=== PATIENT | female | born 1960 | race Caucasian/White ===

== ENCOUNTER 2018-04-18 11:59 | Observation (INO) | payer MEDICARE, MEDICAID ==
[2018-04-18 12:52] LABS: #Eosinphils 0.1 thou/uL (0.0-0.7); #Lymphocytes 1.7 thou/uL (1.20-3.40); #Monocytes 0.5 thou/uL (0.11-0.59); %Basophils 0.4 % (0.0-1.0); %Eosinophils 1.8 % (0.0-10.0); %Lymphocytes 20.3 % (21.0-51.0); %Neutrophils 71.5 % (42.0-75.0); Hemoglobin 14.6 g/dL (12.0-16.0); Mean Corpuscular HGB CONC 32.2 g/dL (32.0-36.0); Mean Corpuscular Hemoglobin 31.6 pg (27.0-31.0); Mean Corpuscular Volume 98.1 fL (78.0-98.0); Mean Platelet Volume 7.1 fL (7.4-10.4); Platelet Count 235 thou/uL (130-400); RBC Distribution Width 11.8 % (11.5-14.5); Red Blood Cell (RBC) Count 4.62 mill/uL (4.20-5.40); White Blood Cell (WBC) Count 8.4 thou/uL (4.8-10.8)
[2018-04-18 13:01] LABS: ALT (SGPT) 20 U/L (8-55); AST (SGOT) 28 U/L (5-34); Alkaline Phosphatase 76 U/L (40-150); Anion Gap 13 mmol/L (10-20); BUN (Urea Nitrogen) 13 mg/dL (9.8-20.1); Bilirubin, Total 0.3 mg/dL (0.2-1.2); Calc. Creatinine Clearance 0 mL/min (70-130); Calcium 9.4 mg/dL (7.8-10.44); Carbon Dioxide 26 mmol/L (22-29); Chloride 104 mmol/L (98-107); Estimated GFR-MDRD 82; Globulin 3.4 g/dL (2.4-3.5); Glucose 97 mg/dL (70-105); Potassium 3.9 mmol/L (3.5-5.1); Protein, Total 7.4 g/dL (6.0-8.3); Sodium 139 mmol/L (136-145)
[2018-04-18 13:03] LABS: CKMB 0.8 ng/mL (0-6.6); Troponin I Less than 0.010 ng/mL (< 0.028)
--- NOTE | 2018-04-18 13:33 | RAD ---
PORTABLE CHEST 1 VIEW: Date: 04/18/18 Time: 1236 hours HISTORY: Dyspnea. Chest pain. FINDINGS: Comparison made with exam of 03/26/18. The heart size is normal. The lungs are hyperinflated without focal areas of consolidation, pneumotho races, or pleural effusions. IMPRESSION: No acute process. POS: [facility]
[2018-04-18] MEDS ORDERED: Acetaminophen 650 MG Suppository PR PRN (15:07)
[2018-04-18] MEDS ORDERED: Enoxaparin Sodium 40 MG/0.4 ML SYRINGE SC SCH (15:07)
[2018-04-18] MEDS ORDERED: Ondansetron ODT 4 MG TAB PO PRN (15:07)
[2018-04-18] MEDS ORDERED: Acetaminophen 325 MG TAB PO PRN (15:07)
[2018-04-18] MEDS ORDERED: Ondansetron PF 4 MG/2 ML Vial IVP PRN (15:07)
[2018-04-18] MEDS ORDERED: Cyclobenzaprine 10 MG TAB PO PRN (15:35)
--- NOTE | 2018-04-18 16:00 | HP ---
DATE OF ADMISSION: 04/18/2018 TIME OF SERVICE: 1400. PRIMARY CARE PHYSICIAN: Jah Fang MD CHIEF COMPLAINT: Chest tightness. HISTORY OF PRESENT ILLNESS: Ms. Ellison is a 57-year-old female with history of COPD, ongoing tobacco abuse, anxiety and depression who presented to the emergency department for episode of chest pain th is morning. The patient took Ritalin that belonged to her friend, so she gets some housework done and after takin g the medicine and sitting down and watching TV for a little bit, she developed acute onset of chest tightness in the center of her chest. She had some diaphoresis, nausea without vomiting, cold sweats associated with it. After about 5 minutes, it went away on its own. She did take a breathing treat ment to try to get it to ease up, which did not seem to help. No fevers or chills. No cough or sput um production. No diarrhea, constipation. She did not have anything like this before. She is taking Ritalin on one occasion prior to this and had no side effects with it at all. PAST MEDICAL HISTORY: 1. COPD. 2. Ongoing tobacco abuse. 3. Anxiety. 4. Depression. PAST SURGICAL HISTORY: 1. Cholecystectomy, remotely. 2. , remotely. 3. Bilateral tubal ligation, remotely. HOME MEDICATIONS: The patient does not know doses, but does get her medicines from [facility] we will get a query. 1. Valium. 2. Meloxicam. 3. Sertraline. 4. Albuterol MDI. 5. DuoNeb treatments. 6. Another long-acting inhaler. She just got recently, does not recall the name. ALLERGIES: 1. PENICILLAMINE. 2. LYRICA. 3. STRAWBERRIES. SOCIAL HISTORY: Significant for about one half to one pack a day of cigarettes for the last 30 years . Denies any IV drug use. She lives alone near family. FAMILY HISTORY: Significant for premature coronary disease in her dad and cerebrovascular disease in her brother. He is 58. He has had 3 strokes, so far. No history of clotting or bleeding disorders , otherwise. REVIEW OF SYSTEMS: All systems reviewed and negative except as per HPI. PHYSICAL EXAMINATION: VITAL SIGNS: Temperature 97.9, pulse 92, blood pressure 114/73, respiratory rate 20, satting 98% on room air. GENERAL: She is awake, she is alert, she is oriented x3. She is a very thin, frail looking white fe male who is in no acute distress. She looks older than her stated age. HEENT: Normocephalic, atraumatic. Pupils equal, round, and reactive to light bilaterally. Mucous m embranes are moist. She has no visible lesions. No thrush. NECK: Supple. She has no lymphadenopathy, no JVD, no thyromegaly. She has good range of motion. N ormal carotid upstrokes without bruits. LUNGS: Clear. She has some faint end-expiratory high pitched squeaks but no prolonged expiratory ph ase. She has no crackles. CARDIOVASCULAR: Normal S1, S2. No S3 or S4. No audible murmur. ABDOMEN: Soft, scaphoid, nontender, nondistended, no masses or organomegaly. EXTREMITIES: Show no signs of clubbing. She has got no edema. SKIN: Warm, moist, and well perfused. There is no rash or lesions. MUSCULOSKELETAL: Normal to inspection. Large joints appear normal. There is no evidence of inflamm ation. No palpable effusion. Good range of motion. NEUROLOGIC: Cranial nerves II-XII are grossly intact. She has no focal neurologic deficits. Normal speech and 5/5 strength in all 4 extremities. LABORATORY DATA: Sodium 139, potassium 3.9, chloride 104, bicarbonate 26, BUN 13, creatinine 0.73, g lucose of 97, calcium 9.4. Liver function within normal limits. CBC showed a white count of 8.4, he moglobin 14.6 hematocrit of 45.3, platelet count is 235,000. CK-MB is normal at 0.8. Troponin I is undetectable less than 0.010. EKG shows normal sinus rhythm with normal axis. There are no abnormal ST-T changes. Her chest x-ray showed no acute cardiopulmonary disease. ASSESSMENT AND PLAN: 1. Acute coronary syndrome . This certainly could be indicative of a coronary spasm, but she h as not had a problem prior. We will place her in observation, with serial cardiac biomarkers, place her on cardioprotective medications and we will obtain a nuclear stress test in the morning if negati ve. 2. Chronic obstructive pulmonary disease without acute exacerbation. We will continue her t.i.d. Du oNeb treatments, q.2 hour p.r.n. albuterol. We will query her home medications. 3. Anxiety. 4. Depression. We will continue home medications. 5. Ongoing tobacco abuse. The patient did refuse nicotine patch. I anticipate discharge in the morning.
[2018-04-18 17:25] LABS: CKMB 0.6 ng/mL (0-6.6); Troponin I Less than 0.010 ng/mL (< 0.028)
[2018-04-18] MEDS: traMADol HCl 50 MG TAB PO PRN (19:13)
[2018-04-18] MEDS: Mometasone/Formoterol 120 PUFF INHALER INH SCH (20:06)
[2018-04-18] MEDS: Ipratropium Bromide 2.5 ml Neb NEB SCH ×2 (20:11→23:20)
[2018-04-18] MEDS ORDERED: Amitriptyline HCl 10 MG TAB PO SCH (21:00)
[2018-04-18] MEDS ORDERED: Diazepam 5 MG TAB PO SCH (21:00)
[2018-04-18] MEDS: Famotidine 20 MG TAB PO SCH (21:01)
[2018-04-18] MEDS: Nitroglycerin 2% Ointment 1 INCH/1 GM Packet TOP SCH (21:05)
[2018-04-19] MEDS: Nitroglycerin 2% Ointment 1 INCH/1 GM Packet TOP SCH ×2 (03:12→13:46)
[2018-04-19] MEDS: traMADol HCl 50 MG TAB PO PRN ×2 (03:57→10:26)
[2018-04-19 05:26] LABS: Band 4 % (5-11); Eosinophils 1 % (0-10); Hemoglobin 12.2 g/dL (12.0-16.0); Lymphocytes 51 % (21-51); MDiff Complete? YES; Mean Corpuscular HGB CONC 32.8 g/dL (32.0-36.0); Mean Corpuscular Hemoglobin 31.3 pg (27.0-31.0); Mean Corpuscular Volume 95.5 fL (78.0-98.0); Mean Platelet Volume 7.3 fL (7.4-10.4); Monocytes 3 % (0-10); Neutrophil 38 % (42-75); PLT Morphology Comment Appears Adequate; Platelet Count 225 thou/uL (130-400); RBC Distribution Width 11.7 % (11.5-14.5); RBC Morphology Normal; Reactive Lymphocytes 3 % (0-10); White Blood Cell (WBC) Count 5.3 thou/uL (4.8-10.8)
[2018-04-19 06:28] LABS: Anion Gap 12 mmol/L (10-20); BUN (Urea Nitrogen) 15 mg/dL (9.8-20.1); Calc. Creatinine Clearance 68 mL/min (70-130); Calcium 8.8 mg/dL (7.8-10.44); Carbon Dioxide 26 mmol/L (22-29); Cardiac Risk 3.1 (Less than 4.5); Chloride 102 mmol/L (98-107); Cholesterol 162 mg/dl (< 200 Desired); Estimated GFR-MDRD Greater than 90; Glucose 85 mg/dL (70-105); HDL Cholesterol 52 mg/dL (>60 Neg Risk); LDL Cholesterol, Calculated 100 mg/dL; Potassium 3.6 mmol/L (3.5-5.1); Sodium 136 mmol/L (136-145); Triglycerides 51 mg/dL (Less than 150)
[2018-04-19 06:33] LABS: CKMB 0.6 ng/mL (0-6.6); Troponin I Less than 0.010 ng/mL (< 0.028)
[2018-04-19] MEDS: Ipratropium Bromide 2.5 ml Neb NEB SCH ×2 (06:42→13:26)
[2018-04-19] MEDS: Mometasone/Formoterol 120 PUFF INHALER INH SCH (06:51)
[2018-04-19] MEDS ORDERED: Aspirin 325 MG TAB PO SCH (09:00)
[2018-04-19] MEDS ORDERED: Enoxaparin Sodium 40 MG/0.4 ML SYRINGE SC SCH (09:00)
[2018-04-19] MEDS ORDERED: Meloxicam 15 MG TAB PO SCH (09:00)
[2018-04-19] MEDS ORDERED: Diazepam 5 MG TAB PO SCH (09:00)
[2018-04-19] MEDS: Famotidine 20 MG TAB PO SCH (10:22)
[2018-04-19] MEDS ORDERED: Regadenoson 0.4 MG/5 ML SYRINGE ONE (11:08)
[2018-04-19 11:32] VITALS: TEMP 98.2
[2018-04-19] MEDS ORDERED: Ipratropium Bromide 2.5 ml Neb NEB SCH (14:30)
--- NOTE | 2018-04-19 15:18 | NM ---
CARDIAC SPECT: CLINICAL HISTORY: 57-year-old female with chest pain, COPD, smoker, and family history of coronary artery disease. TECHNIQUE: A myocardial perfusion scan was performed using the single isotope two day protocol with 30 mCi techn etium-99m sestamibi injected intravenously for both stress and rest images. Pharmacologic stress with Lexiscan was monitored and interpreted by Dr. Bullock. FINDINGS: Homogeneous tracer distribution is seen in the myocardial segments on stress and rest images without fixed or reversible defects. GATED SPECT LVEF: 89%. WALL MOTION EXAM: Normal. IMPRESSION: Normal myocardial perfusion scan. POS: [facility]
[2018-04-19 15:50] VITALS: BP 109/60
== END 2018-04-19 16:35 | disposition home or self-care (01) ==
LOC: ERS 11:59 → 2SW 15:09
PROVIDERS: ADMIT Internal Medicine; ATTEND Internal Medicine
DX: I24.9 Acute ischemic heart disease, unspecified (principal); J44.9 Chronic obstructive pulmonary disease, unspecified; F41.8 Other specified anxiety disorders; Z88.0 Allergy status to penicillin; Z88.8 Allergy status to other drugs, medicaments and biological substances; Z91.018 Allergy to other foods; F17.200 Nicotine dependence, unspecified, uncomplicated; Z79.899 Other long term (current) drug therapy
CPT/HCPCS: 71045; 78452; 80048; 80053; 80061; 82553 ×3; 83735; 84484 ×3; 85025 ×2; 93005; 93017; 94640 ×5; 94664; 96372 ×2; 99285; A9500; G0378 ×3; 36415; J1650; J2785; Q0162

== ENCOUNTER 2018-11-12 09:38 | Outpatient (CLI) | payer MEDICARE, OTHER ==
--- NOTE | 2018-11-12 11:05 | MMO ---
Bilateral MAMMO Bilat Diag [facility]NIE. CLINICAL HISTORY: Patient is 58 years old and is seen for diagnostic exam and non-bloody discharge in the left breast. The patient has the following family history of breast cancer: maternal aunt; paternal aunt; paternal aunt, GREAT and maternal uncle. The patient has no personal history of cancer. The patient has a history of bilateral Implants in 2008. VIEWS: The views performed were: bilateral craniocaudal; bilateral mediolateral oblique; bilateral mediolateral; and bilateral Implant displaced with tomosynthesis. FILMS COMPARED: The present examination has been compared to prior imaging studies performed at [facility] on 11/12/2018, and at [facility] on 03/23/2008, 05/30/2011 and 06/23/2012. MAMMOGRAM FINDINGS: The breasts are heterogeneously dense, which could obscure a lesion on mammography. Finding 1: Normal implants are present. Finding 2: There are no mammographic or sonographic abnormalities to explain the patient's reported left nipple discharge. The patient is referred back to her clinician. Negative imaging findings should not preclude further evaluation if clinical findings are suspicious. IMPRESSION: FINDING 2: THERE ARE NO MAMMOGRAPHIC ABNORMALITIES TO EXPLAIN THE PATIENT'S REPORTED LEFT NIPPLE DISCHARGE. THE PATIENT IS REFERRED BACK TO HER CLINICIAN. NEGATIVE IMAGING FINDINGS SHOULD NOT PRECLUDE FURTHER EVALUATION IF CLINICAL FINDINGS ARE SUSPICIOUS. A ROUTINE FOLLOW-UP MAMMOGRAM IN 1 YEAR IS RECOMMENDED. THE RESULTS OF THIS EXAM WERE SENT TO THE PATIENT. ACR BI-RADS Category 2 - Benign finding MAMMOGRAPHY NOTE: 1. A negative mammogram report should not delay a biopsy if a dominant of clinically suspicious mass is present. 2. Approximately 10% to 15% of breast cancers are not detected by mammography. 3. Adenosis and dense breasts may obscure an underlying neoplasm.
--- NOTE | 2018-11-12 11:31 | ULT ---
LIMITED LEFT BREAST ULTRASOUND: DATE: 11/12/2018. PROVIDED CLINICAL HISTORY: Left breast discharge. FINDINGS: Limited sonographic interrogation was performed of the left breast in the retroareolar region. No ev idence for mass or other concerning finding. IMPRESSION: BIRADS category 1 - negative. Negative imaging findings should not preclude further evaluation of a clinically suspicious abnormality. The patient is referred back to her clinician. POS: [facility]
== END 2018-11-12 09:39 | disposition home or self-care (01) ==
LOC: BICMAMMO 09:38
PROVIDERS: ATTEND Family Medicine
DX: N63.0 Unspecified lump in unspecified breast (principal); Z80.3 Family history of malignant neoplasm of breast; Z98.82 Breast implant status
CPT/HCPCS: 76642; 77066; G0279

== ENCOUNTER 2019-01-11 14:39 | Emergency (ER) | payer MEDICARE, MEDICAID ==
[2019-01-11] MEDS ORDERED: ISOVUE-370 76%-LOCM 1 ML ONE (16:31)
[2019-01-11] MEDS ORDERED: Pantoprazole 40 MG VIAL ONE (18:32)
[2019-01-11 18:48] LABS: #Eosinphils 0.2 thou/uL (0.0-0.7); #Lymphocytes 2.4 thou/uL (1.20-3.40); #Monocytes 0.9 thou/uL (0.11-0.59); #Neutrophils 7.5 thou/uL (1.40-6.50); %Basophils 0.2 % (0.0-1.0); %Eosinophils 1.6 % (0.0-10.0); %Lymphocytes 21.6 % (21.0-51.0); %Monocytes 8.5 % (0.0-10.0); %Neutrophils 68.1 % (42.0-75.0); Hemoglobin 12.7 g/dL (12.0-16.0); Mean Corpuscular HGB CONC 33.3 g/dL (32.0-36.0); Mean Corpuscular Hemoglobin 32.4 pg (27.0-31.0); Mean Corpuscular Volume 97.3 fL (78.0-98.0); Mean Platelet Volume 7.3 fL (7.4-10.4); Platelet Count 274 thou/uL (130-400); RBC Distribution Width 12.3 % (11.5-14.5); Red Blood Cell (RBC) Count 3.93 mill/uL (4.20-5.40); White Blood Cell (WBC) Count 11.1 thou/uL (4.8-10.8)
[2019-01-11 19:02] LABS: ALT (SGPT) 26 U/L (8-55); AST (SGOT) 17 U/L (5-34); Albumin 3.5 g/dL (3.5-5.0); Alkaline Phosphatase 139 U/L (40-150); Anion Gap 13 mmol/L (10-20); BUN (Urea Nitrogen) 23 mg/dL (9.8-20.1); Bilirubin, Total 0.2 mg/dL (0.2-1.2); CRP (Inflammatory) 21.33 mg/dL (= or < 0.5); Calc. Creatinine Clearance 0 mL/min (70-130); Carbon Dioxide 26 mmol/L (22-29); Chloride 102 mmol/L (98-107); Estimated GFR-MDRD 87; Globulin 3.1 g/dL (2.4-3.5); Glucose 79 mg/dL (70-105); Lipase 42 U/L (8-78); Potassium 3.8 mmol/L (3.5-5.1); Protein, Total 6.6 g/dL (6.0-8.3); Sodium 137 mmol/L (136-145)
[2019-01-11 19:15] LABS: Bacteria/HPF None Seen HPF (None Seen); Bilirubin Negative (Negative); Blood, Urine Trace (Negative); Clarity Clear (Clear); Glucose, Urine (Dipstick) Normal (Negative); Leukocyte 75 Leu/uL (Negative); Mucous/LPF 1+ LPF (<2+); Nitrite Negative (Negative); Protein, Urine (Dipstick) 30 mg/dL (Neg-Trace)
--- NOTE | 2019-01-11 19:52 | CT ---
CT ABDOMEN AND PELVIS WITH IV CONTRAST: Date: 01-11-19 Provided Clinical History: Abdominal pain. FINDINGS: The visualized lung bases are free of significant opacity. There is an 8-9 mm inferior pole right renal calculus with associated obstructive change. There is at rophy of the Renal parenchyma about the calculus suggesting that it previously obstructed a michael. Th e solid abdominal organs demonstrate an otherwise unremarkable CT appearance. There is no bowel dilatation, inflammatory fat stranding, free fluid or free air apparent. The append ix appears normal. The osseous structures demonstrate no concerning lytic or blastic lesions. Extensive atherosclerotic vascular calcification is demonstrated involving the abdominal aorta and its branches. Changes of prior cholecystectomy are demonstrated. IMPRESSION: 1. 9 mm nonobstructing inferior pole right renal calculus. 2. Atherosclerosis. POS: [facility]
--- NOTE | 2019-01-16 10:27 | EKG ---
Test Reason : Blood Pressure : / mmHG Vent. Rate : 080 BPM Atrial Rate : 080 BPM P-R Int : 138 ms QRS Dur : 074 ms QT Int : 378 ms P-R-T Axes : 000 131 142 degrees QTc Int : 435 ms Normal sinus rhythm Left posterior fascicular block Abnormal ECG Confirmed by VIDAL HUTCHINSON DO ([id number]), editor news SAW GOMES ([id number]) on 01/16/2019 10:26:56 AM Referred By: Confirmed By:VIDAL HUTCHINSON DO
== END 2019-01-11 20:45 | disposition home or self-care (01) ==
LOC: ERS 14:39
DX: R10.13 Epigastric pain (principal); J44.9 Chronic obstructive pulmonary disease, unspecified; M19.90 Unspecified osteoarthritis, unspecified site; F41.9 Anxiety disorder, unspecified; F32.9 Major depressive disorder, single episode, unspecified; F17.210 Nicotine dependence, cigarettes, uncomplicated; Z79.899 Other long term (current) drug therapy; Z79.51 Long term (current) use of inhaled steroids
CPT/HCPCS: 36415; 74177; 80053; 81003; 81015; 83690; 85025; 86140; 93005; 96365; C9113; Q9966

== ENCOUNTER 2019-03-23 09:58 | Outpatient (CLI) | payer MEDICARE, MEDICAID ==
--- NOTE | 2019-03-23 11:05 | CT ---
NONCONTRAST CHEST CT CT LUNG SCAN LOW DOSE: HISTORY: Current smoker for 40+ years. Emphysema. COPD. Screening study. COMPARISON: None. TECHNIQUE: Low-dose screening lung CT is performed utilizing institutional protocol. FINDINGS: Lung screening specific (LUNG-RADS): Category 1. No evidence of lung nodules. Potential significant incidentals (lung RADS category S): None. Pulmonary incidentals Mild emphysematous changes. Scattered linear opacities likely represent scar/atelectasis. The right u pper lobe volume is somewhat diminutive and may be due to atelectasis. There is elevation of the minor fissure. There is compensatory hyperinflation of the right lower lobe. The left upper lobe is a lso somewhat diminutive with compensatory hyperinflation of the lateral left lower lobe. Other incidentals: Coronary calcifications are noted. Gallbladder is surgically absent. Atherosclerosis of a nonaneurysm al aorta. IMPRESSION: 1. No evidence of lung nodules. 2. Lung Rask category S: Negative. No new or unknown potential significant incidental findings requir ing urgent additional evaluation. 3. Emphysematous changes of the lung parenchyma. Diminished lung volumes in the left and right upper lobe without associated obstructing mass. As a conservative measure, pulmonary consultation is recommended. Additional incidental findings as above. Recommendation: 1. Continued routine annual low-dose lung screening CT. Follow-up in one year. 2. Pulmonary consultation is recommended given emphysematous changes along with diminished left and r ight upper lobe. No obvious obstruction in the central airway. CODE T Transcribed Date/Time: 03/23/2019 11:09 AM
== END 2019-03-23 09:59 | disposition home or self-care (01) ==
LOC: CT 09:58
PROVIDERS: ATTEND Nurse Practitioner Family
DX: F17.210 Nicotine dependence, cigarettes, uncomplicated (principal); R91.8 Other nonspecific abnormal finding of lung field; J43.9 Emphysema, unspecified
CPT/HCPCS: G0297

== ENCOUNTER 2020-03-01 11:58 | Outpatient (CLI) | payer MEDICARE, MEDICAID ==
--- NOTE | 2020-03-01 13:16 | ULT ---
Exam: Bilateral renal ultrasound HISTORY: Left flank pain. COMPARISON: None FINDINGS: Right kidney: Normal cortical echotexture. No hydronephrosis. Right kidney measurements: 10.9 x 5.0 x 4.1 cm. Left kidney: Normal cortical echotexture. No hydronephrosis Left kidney measurements 9.7 x 4.7 x 5.1 cm. Urinary bladder: Normal mucosa. 168 mL bladder volume. IMPRESSION: No hydronephrosis.
== END 2020-03-01 11:59 | disposition home or self-care (01) ==
LOC: BICULT 11:58
PROVIDERS: ATTEND Nurse Practitioner Family
DX: R10.9 Unspecified abdominal pain (principal); R89.9 Unspecified abnormal finding in specimens from other organs, systems and tissues; M54.9 Dorsalgia, unspecified
CPT/HCPCS: 76770

== ENCOUNTER 2020-04-03 13:11 | Outpatient (CLI) | payer MEDICARE, MEDICAID ==
--- NOTE | 2020-04-03 14:37 | RAD ---
Exam: Lumbar spine 4 views HISTORY: Intervertebral disc disorder. Radiculopathy. FINDINGS: AP, lateral neutral, lateral flexion and lateral extension views are performed in the weightbearing p osition. Visualized bony pelvis is intact. Five lumbar type vertebra. Lumbar spine vertebral body height is maintained. No fracture. Moderate de generative disc disease at L2-L3. Atherosclerosis of a nonaneurysmal aorta. Spondylolisthesis: L2-L3: 2.4 mm of retrolisthesis in the neutral position. 3.7 mm of retrolisthesis upon extension. 3.7 mm of retrolisthesis upon extension. IMPRESSION: 1. Grade 1 retrolisthesis of L2 upon L3. 2. Moderately degenerative disc disease at L2-L3. 3. No evidence of fracture. Transcribed Date/Time: 04/03/2020 4:01 PM
--- NOTE | 2020-04-03 14:47 | MRI ---
MRI LUMBAR SPINE NONCONTRAST: DATE: 04/03/2020 HISTORY: ICD-10: "M 51.16 intervertebral disc disorder. Low back pain COMPARISON: 19/02/2014 FINDINGS: 5 standard lumbar type vertebrae. Vertebral body heights are maintained. Mild lateral curvature. Conu s medullaris terminates at approximately L1-2. T12-L1:Shallow, small central and left paracentral disc-osteophyte complex. This indents the left faustino tral aspect of thecal sac, but does not cause significant central spinal canal stenosis. Mild disc space narrowing. No neural foraminal stenosis. No interval change. L1-2:Disc space maintained. Minimal bilateral paracentral shallow disc protrusions. No central or anju ral foraminal stenosis. No interval change. L2-3:Moderate to severe disc space narrowing. Slight retrolisthesis of L2 on L3. Broad-based central and bilateral paracentral disc herniation with slight inferior and minimal superior migration of extruded disc material. Mild to moderate right and mild left neural foraminal stenosis. Mild to moder ate central spinal canal stenosis. Posterior epidural fat pad. Moderate thecal sac stenosis. No interval change. L3-4:Mild to moderate disc space narrowing. Prominent diffuse disc bulge is either larger now than be fore, or there is a new superimposed broad-based central and bilateral paracentral disc herniation.. Mild right and mild to moderate left neural foraminal stenosis. Mild ligamentum flavum t hickening. Mild bilateral facet DJD. Moderate central spinal canal stenosis and moderate to severe thecal sac stenosis, both worse than before. L4-5:Disc space maintained. Mild diffuse disc bulge. Mild central spinal canal stenosis. Mild lateral recess stenosis bilaterally, right greater than left. Mild to moderate right and mild left neural foraminal stenosis. No major interval change. L5-S1:Mild to moderate bilateral facet DJD. No central spinal canal stenosis. Mild to moderate bilate ral neural foraminal stenosis. No significant interval change. IMPRESSION: 1) lumbar spondylosis with varying degrees of degenerative disc disease (worst at L2-3) and multileve l mostly low-grade facet osteoarthrosis. 2) interval worsening of moderate central spinal canal stenosis at L3-4 due to either interval worsen ing of disc bulge or superimposed broad-based disc herniation upon the pre-existing disc bulge. 3) At L2-3, the disc herniation and degree of central spinal canal stenosis is approximately the same as before.
== END 2020-04-03 13:12 | disposition home or self-care (01) ==
LOC: BICMRI 13:11
PROVIDERS: ATTEND Nurse Practitioner Family
DX: M51.16 Intervertebral disc disorders with radiculopathy, lumbar region (principal); M47.26 Other spondylosis with radiculopathy, lumbar region; M43.16 Spondylolisthesis, lumbar region; M48.062 Spinal stenosis, lumbar region with neurogenic claudication
CPT/HCPCS: 72110; 72148

== ENCOUNTER 2020-06-23 13:48 | Outpatient (CLI) | payer MEDICARE, MEDICAID ==
--- NOTE | 2020-06-23 15:18 | RAD ---
CERVICAL SPINE: 06/23/20 Five views. HISTORY: Cervical pain with radiculopathy. Moderate to severe degenerative changes of the cervical spine. Loss of disc space and prominent hyper trophic spurring at all levels. Posterior spondylosis noted at C3-4, C4-5 and C5-6. Loss of disc spac e at all levels. Posterior alignment is preserved and vertebral body height is maintained. There is a slight anterolisthesis at C7-T1 measured at approximately 3 mm. IMPRESSION: Moderate to severe hypertrophic degenerative changes of the cervical spine with multilevel degenerati ve disc changes. POS: [facility]
--- NOTE | 2020-06-23 15:35 | MRI ---
MRI CERVICAL SPINE WITHOUT CONTRAST: INDICATION: Cervical pain with radiculopathy. FINDINGS: Cervical vertebrae maintain normal height and alignment. Moderate degenerative changes are seen. Os teophytes are seen from the cervical vertebrae anteriorly and laterally. Loss of disk space at all l evels with diffuse degenerative disk changes throughout the cervical spine. Degenerative end plate s ignal changes noted at C5-6. C2-3: No significant disk bulge or spondylosis. C3-4: Posterior disk bulge and spondylosis compress the thecal sac and efface the anterior subarachn oid space. This slightly abuts the anterior cord to the left of midline. Left foraminal narrowing d ue to facet and uncinate hypertrophy. C4-5: Disk bulge and spondylosis abut and mildly compress the anterior cord. Evidence of bilateral foraminal stenosis more severe on the right. C5-6: Disk bulge and spondylosis abuts and mildly compresses the anterior cord. Evidence of bilater al foraminal stenosis. C6-7: Disk bulge and spondylosis efface the anterior subarachnoid space. No cord impingement. Bila teral foraminal stenosis more severe on the right. C7-T1: No significant abnormality. The cervical cord signal is normally preserved. IMPRESSION: Degenerative disk changes at all levels. Posterior disk and spondylosis prominent at C3-4, C4-5, and C5-6 levels as described above. POS: OFF
== END 2020-06-23 13:49 | disposition home or self-care (01) ==
LOC: BICMRI 13:48
PROVIDERS: ATTEND Nurse Practitioner Family
DX: M47.22 Other spondylosis with radiculopathy, cervical region (principal); M50.11 Cervical disc disorder with radiculopathy, high cervical region
CPT/HCPCS: 72050; 72141

== ENCOUNTER 2020-08-17 12:44 | Outpatient (CLI) | payer MEDICARE, MEDICAID | END 2020-08-17 12:45 | disposition home or self-care (01) | LOC: BICCT 12:44 | PROVIDERS: ATTEND Nurse Practitioner Family | DX: Z12.2 Encounter for screening for malignant neoplasm of respiratory organs (principal); F17.210 Nicotine dependence, cigarettes, uncomplicated; J43.9 Emphysema, unspecified; I25.10 Atherosclerotic heart disease of native coronary artery without angina pectoris; I70.0 Atherosclerosis of aorta | CPT/HCPCS: 71271 ==

== ENCOUNTER 2020-10-18 13:30 | Outpatient (CLI) | payer MEDICARE, MEDICAID ==
[2020-10-18 15:00] LABS: Hemoglobin 14.4 g/dL (12.0-15.5); Mean Corpuscular HGB CONC 33.4 g/dL (32.0-36.0); Mean Corpuscular Volume 92.9 fl (81.6-98.3); Mean Platelet Volume 9.7 fl (7.4-10.4); Platelet Count 267 10x3/uL (150-450); Red Blood Cell (RBC) Count 4.64 10x6/uL (3.90-5.03); White Blood Cell (WBC) Count 8.1 10x3/uL (3.5-10.5)
[2020-10-18 15:28] LABS: Anion Gap 14 mmol/L (10-20); BUN (Urea Nitrogen) 20 mg/dL (9.8-20.1); Calc. Creatinine Clearance 0 mL/min (70-130); Calcium 9.7 mg/dL (7.8-10.44); Carbon Dioxide 26 mmol/L (22-29); Chloride 103 mmol/L (98-107); Glucose 120 mg/dL (70-105); Potassium 3.8 mmol/L (3.5-5.1); Sodium 139 mmol/L (136-145)
[2020-10-19 01:05] LABS: SARS-CoV-2 PCR by NAA Not Detected (NotDetected)
== END 2020-10-18 13:31 | disposition home or self-care (01) ==
LOC: LABBT 13:30
PROVIDERS: ATTEND Neurological Surgery
DX: Z01.818 Encounter for other preprocedural examination (principal); M54.12 Radiculopathy, cervical region; Z20.822 Contact with and (suspected) exposure to COVID-19
CPT/HCPCS: 80048; 85027; 93005; U0003; U0005; 87635; 93010

== ENCOUNTER 2020-10-23 07:58 | Observation (INO) | payer MEDICARE, MEDICAID ==
[2020-10-20 11:20] VITALS: BMI 20.7
[2020-10-23] MEDS ORDERED: Levofloxacin 500 mg/D5W 100 ml Premix Bag ONE (10:05)
[2020-10-23] MEDS ORDERED: Clindamycin/D5W 900 mg/50 ml Premix Bag ONE (10:05)
[2020-10-23] MEDS ORDERED: Midazolam HCl 2 mg/2 ml Vial ONE (10:11)
[2020-10-23] MEDS ORDERED: Fentanyl 100 MCG/2 ML VIAL ONE ×3 (11:49→13:55)
[2020-10-23] MEDS ORDERED: Rocuronium Bromide 10 MG/ML (10ML VIAL) ONE (12:03)
[2020-10-23] MEDS ORDERED: PROPOFOL 200 MG/20 ML VIAL ONE (12:03)
[2020-10-23] MEDS ORDERED: Lidocaine 1% PF 5 ML VIAL ONE (12:03)
[2020-10-23] MEDS ORDERED: Dexamethasone 20 MG/5 ML VIAL ONE (12:03)
[2020-10-23] MEDS ORDERED: Ketorolac Tromethamine 30 MG/ML VIAL ONE (12:03)
[2020-10-23] MEDS ORDERED: PHENYLEPHRINE-NS 100 MCG/ML 10 ML SYRINGE ONE (12:03)
[2020-10-23] MEDS ORDERED: Ondansetron PF 4 MG/2 ML Vial ONE (12:03)
[2020-10-23] MEDS ORDERED: Promethazine HCl 25 MG/ML VIAL IM PRN ×2 (12:29→13:45)
[2020-10-23] MEDS ORDERED: Promethazine HCl 25 MG/ML VIAL SLOW IVP PRN (12:29)
[2020-10-23] MEDS ORDERED: Meperidine HCl/PF 25 MG/ML VIAL SLOW IVP PRN (12:29)
[2020-10-23] MEDS ORDERED: HYDROmorphone 2 MG/ML VIAL SLOW IVP PRN (12:29)
[2020-10-23] MEDS ORDERED: SUGAMMADEX SODIUM 200 MG/2 ML VIAL ONE (12:58)
[2020-10-23] MEDS ORDERED: HYDROmorphone 0.5 MG/0.5 ML SYRINGE ONE (13:42)
[2020-10-23] MEDS ORDERED: Ondansetron PF 4 MG/2 ML Vial IVP PRN (13:43)
[2020-10-23] MEDS ORDERED: Acetaminophen/Codeine 30-300mg Tablet PO PRN (13:45)
[2020-10-23] MEDS ORDERED: Mag-Al 1200 mg/1200 mg/30 ML UDCUP PO PRN (13:45)
[2020-10-23] MEDS ORDERED: Promethazine 25 MG TAB PO PRN (13:45)
[2020-10-23] MEDS ORDERED: diphenhydrAMINE 25 MG CAP PO PRN (13:45)
[2020-10-23] MEDS ORDERED: Promethazine HCl 12.5 MG SUPP PR PRN (13:45)
[2020-10-23] MEDS ORDERED: traMADol HCl 50 MG TAB PO PRN ×2 (13:45)
[2020-10-23] MEDS ORDERED: Morphine 2 MG/ML VIAL SLOW IVP PRN (13:45)
[2020-10-23] MEDS ORDERED: tiZANidine HCl 4 MG TAB PO PRN (13:45)
[2020-10-23] MEDS ORDERED: Morphine 4 MG/ML VIAL SLOW IVP PRN (13:45)
[2020-10-23] MEDS ORDERED: diphenhydrAMINE 50 MG/ML VIAL IVP PRN (13:45)
[2020-10-23] MEDS ORDERED: Milk Of Magnesia 30 ML UDCUP PO PRN (13:45)
[2020-10-23] MEDS: Acetaminophen/Codeine 30-300mg Tablet PO PRN ×2 (16:38→20:19)
[2020-10-23] MEDS: Sodium Chloride 0.9% 1,000 ML IV SCH (16:42)
[2020-10-23] MEDS ORDERED: Acetaminophen 325 MG TAB PO PRN (16:45)
[2020-10-23] MEDS ORDERED: Nicotine 14 MG PATCH TOP SCH (17:00)
[2020-10-23] MEDS: Clindamycin/D5W 900 MG in Premix Bag 1 BAG IVPB SCH (17:39)
[2020-10-23] MEDS: Mometasone 100 MCG/PUFF (1 INHALER) INH SCH (19:41)
[2020-10-24] MEDS: Acetaminophen/Codeine 30-300mg Tablet PO PRN ×2 (00:02→08:18)
[2020-10-24] MEDS: Clindamycin/D5W 900 MG in Premix Bag 1 BAG IVPB SCH ×2 (02:05→08:20)
[2020-10-24] MEDS: Mometasone 100 MCG/PUFF (1 INHALER) INH SCH (07:29)
[2020-10-24] MEDS: Sodium Chloride 0.9% 1,000 ML IV SCH (07:37)
[2020-10-24 11:35] VITALS: BP 145/78; TEMP 98.4
== END 2020-10-24 12:54 | disposition home or self-care (01) ==
LOC: SDC 07:58 → SURG B 13:31
PROVIDERS: ADMIT Neurological Surgery; ATTEND Neurological Surgery
PROC: 0RG20A0 Fusion of 2 or more Cervical Vertebral Joints with Interbody Fusion Device, Anterior Approach, Anterior Column, Open Approach (ICD-10-PCS; principal; 2020-10-23)
PROC: 0RG2070 Fusion of 2 or more Cervical Vertebral Joints with Autologous Tissue Substitute, Anterior Approach, Anterior Column, Open Approach (ICD-10-PCS; 2020-10-23)
PROC: 0RT30ZZ Resection of Cervical Vertebral Disc, Open Approach (ICD-10-PCS; 2020-10-23)
DX: M54.12 Radiculopathy, cervical region (principal); Z79.899 Other long term (current) drug therapy; Z88.0 Allergy status to penicillin; Z88.8 Allergy status to other drugs, medicaments and biological substances; Z91.013 Allergy to seafood
CPT/HCPCS: 20930; 20936; 22551; 22552; 22853 ×2; 76000; 94640 ×2; C1713 ×2; C1768; C1776; 96374; 96376; G0378; J1100; J1170; J1885; J1956; J2250; J2405; J2704; J3010; J3490; J7620

== ENCOUNTER 2020-11-16 12:44 | Outpatient (CLI) | payer MEDICARE, MEDICAID | END 2020-11-16 12:45 | disposition home or self-care (01) | LOC: TBSIIMAG 12:44 | PROVIDERS: ATTEND Physician Assistant | DX: M54.12 Radiculopathy, cervical region (principal); M79.89 Other specified soft tissue disorders; Z98.1 Arthrodesis status | CPT/HCPCS: 72040 ==

== ENCOUNTER 2021-12-10 13:32 | Outpatient (CLI) | payer MEDICARE | END 2021-12-10 13:33 | disposition home or self-care (01) | LOC: RAD 13:32 | PROVIDERS: ATTEND Internal Medicine Critical Care Medicine | DX: R06.00 Dyspnea, unspecified (principal); J44.9 Chronic obstructive pulmonary disease, unspecified | CPT/HCPCS: 71046 ==

== ENCOUNTER 2021-12-18 15:24 | Outpatient (CLI) | payer OTHER, MEDICAID | END 2021-12-18 15:25 | disposition home or self-care (01) | LOC: BICCT 15:24 | PROVIDERS: ATTEND Internal Medicine Critical Care Medicine | DX: Z12.2 Encounter for screening for malignant neoplasm of respiratory organs (principal); J43.9 Emphysema, unspecified | CPT/HCPCS: 71271 ==

== ENCOUNTER 2022-09-13 10:16 | Outpatient (CLI) | payer OTHER, MEDICAID | END 2022-09-13 10:17 | disposition home or self-care (01) | LOC: TBSIIMAG 10:16 | PROVIDERS: ATTEND Specialist | DX: M51.16 Intervertebral disc disorders with radiculopathy, lumbar region (principal); M47.26 Other spondylosis with radiculopathy, lumbar region; M47.27 Other spondylosis with radiculopathy, lumbosacral region | CPT/HCPCS: 72148 ==

== ENCOUNTER 2022-12-10 10:35 | Outpatient (CLI) | payer OTHER, MEDICAID | END 2022-12-10 10:36 | disposition home or self-care (01) | LOC: RAD 10:35 | PROVIDERS: ATTEND Internal Medicine Critical Care Medicine | DX: R06.00 Dyspnea, unspecified (principal) | CPT/HCPCS: 71046 ==

== ENCOUNTER 2023-04-17 08:06 | Outpatient (CLI) | payer OTHER, MEDICAID | END 2023-04-17 08:07 | disposition home or self-care (01) | LOC: BICULT 08:06 | PROVIDERS: ATTEND Nurse Practitioner Family | DX: Z12.2 Encounter for screening for malignant neoplasm of respiratory organs (principal); Z13.6 Encounter for screening for cardiovascular disorders; J43.9 Emphysema, unspecified; F17.210 Nicotine dependence, cigarettes, uncomplicated; R09.89 Other specified symptoms and signs involving the circulatory and respiratory systems | CPT/HCPCS: 71271; 76775 ==

== ENCOUNTER 2023-04-30 15:37 | Outpatient (CLI) | payer OTHER, MEDICAID | END 2023-04-30 15:38 | disposition home or self-care (01) | LOC: ULT 15:37 | PROVIDERS: ATTEND Nurse Practitioner Family | DX: R79.89 Other specified abnormal findings of blood chemistry (principal) | CPT/HCPCS: 76536 ==

== ENCOUNTER 2023-08-04 09:14 | Outpatient (CLI) | payer MEDICARE, MEDICAID | END 2023-08-04 09:15 | disposition home or self-care (01) | LOC: CT 09:14 | PROVIDERS: ATTEND Internal Medicine Gastroenterology | DX: Z12.11 Encounter for screening for malignant neoplasm of colon (principal); R63.4 Abnormal weight loss; Z86.19 Personal history of other infectious and parasitic diseases | CPT/HCPCS: 71260; 74177; 82565 ==

== ENCOUNTER 2023-10-10 10:31 | Outpatient (CLI) | payer MEDICARE | END 2023-10-10 10:32 | disposition home or self-care (01) | LOC: DTY/OP 10:31 | PROVIDERS: ATTEND Nurse Practitioner Family | DX: R63.4 Abnormal weight loss (principal) | CPT/HCPCS: 97802 ==

== ENCOUNTER 2023-12-09 10:41 | Outpatient (CLI) | payer MEDICARE, MEDICAID | END 2023-12-09 10:42 | disposition home or self-care (01) | LOC: RAD 10:41 | PROVIDERS: ATTEND Internal Medicine Critical Care Medicine | DX: R06.00 Dyspnea, unspecified (principal) | CPT/HCPCS: 71046 ==